=== PATIENT | female | born 1950 | race Caucasian/White ===

== ENCOUNTER 2024-07-30 22:28 | Emergency (ER) | payer MEDICARE, OTHER ==
[2024-07-30 22:34] VITALS: BP 128/84; PULSE 86; RESP 18; TEMP 97.8; BMI 16.8
== END 2024-07-31 01:20 | disposition home or self-care (01) ==
LOC: JER 22:28
DX: H11.31 Conjunctival hemorrhage, right eye (principal)
CPT/HCPCS: 99283-25